=== PATIENT | female | born 1960 | race Caucasian/White ===

== ENCOUNTER 2016-11-05 10:20 | Inpatient (IN) | payer OTHER ==
[~2016-11-05 10:20] MED LIST: ABILIFY5 M1 PO; AMITRIPTYLINE H50 M1 PO; BRINTELLIX10 M1 PO; CEFDINIR300 M1 PO; CLARITIN10 M8 PO; IPRAT-ALBUT 0.5-3 ML INH; IPRAT-ALBUT 0.5-3 ML NEB; LEVAQUIN750 M1 PO; LIPITOR20 M1 PO; NASACORT10.8 M1; NORCO 7.5-3251 EACH PO; PREDNISONE10 M1 PO; PREDNISONE10 M2 PO; PREMPRO 0.625-1 EAC1 PO; PROMETHAZINE-C118 ML PO; PROVENTIL HFA6.7 G1 IH; SINGULAIR10 M1 PO; SYMBICORT 160-1 PUFF INH; VALSARTAN-HCTZ1 EA11 PO; ZITHROMAX250 M1 PO
[2016-11-05] MEDS ORDERED: VIBRAMYCIN100 M1 PO (10:51)
[2016-11-05] MEDS ORDERED: SPIRIVA RESPIMAT4 G1 INH (10:51)
[2016-11-05 12:14] LABS: BASO % 0.1 % (0-2); EOS % 0.5 % (0-7); EOSINOPHIL ABSOLUTE COUNT 0.1 tho/cmm (0.0-0.7); HCT-HEMATOCRIT 43.7 % (34.0-49.0); HGB-HEMOGLOBIN 14.8 gm/dl (12.0-15.5); IMMATURE GRANULOCYTES ABSOLUTE 0.19 tho/cmm (0-0.03); IMMATURE GRANULOCYTES PERCENT 0.8 % (0-0.3); LYMPH % 6.5 % (20-45); LYMPH ABSOLUTE COUNT 1.5 tho/cmm (0.8-4.5); MCH (MEAN CORPUSCULAR HGB) 29.8 pg (28.0-32.0); MCHC MEAN CORPUSCULAR HGB CONC 33.9 % (32.0-36.0); MCV (MEAN CELL VOLUME) 87.9 fl (82.0-96.0); MEAN PLATELET VOLUME 9.2 cmc (9.4-12.4); MONOCYTE ABSOLUTE COUNT 1.4 tho/cmm (0.0-1.2); NEUTROPHILS % 86.1 % (40-80); PLATELET COUNT 352 tho/cmm (150-450); RED BLOOD COUNT 4.97 mil/cmm (4.00-5.20); RED CELL DISTRIBUTION WIDTH 14.5 % (12.4-16.4); WHITE BLOOD COUNT 23.2 tho/cmm (4.0-10.0)
[2016-11-05 12:56] LABS: PROCALCITONIN <0.05 ng/ml (0.05-0.09)
[2016-11-05 13:13] LABS: ANION GAP 16 mmol/L (0-20); BLOOD UREA NITROGEN 24 mg/dl (6-24); CALCIUM 8.8 mg/dl (8.5-10.5); CARBON DIOXIDE-VENOUS 27 mmol/L (22-32); CHLORIDE 101 mmol/l (96-110); GLUCOSE 133 mg/dL (70-110); POTASSIUM 3.9 mmol/L (3.7-5.1); SODIUM 140 mmol/L (135-145); eGFR VALUE FOR BLACK >90 mL/Min
[2016-11-05 17:51] LABS: ALB/GLOB RATIO 0.9 (0.8-2.0); ALKALINE PHOSPHATASE 33 U/L (33-138); ALT/SGPT 24 U/L (12-78); ANION GAP 14 mmol/L (0-20); AST/SGOT 14 U/L (10-40); BILIRUBIN,TOTAL 0.4 mg/dl (0-1.5); BLOOD UREA NITROGEN 19 mg/dl (6-24); CALCIUM 7.5 mg/dl (8.5-10.5); CARBON DIOXIDE-VENOUS 24 mmol/L (22-32); CHLORIDE 106 mmol/l (96-110); CREATININE 0.77 mg/dl (0.50-1.10); GLUCOSE 166 mg/dL (70-110); POTASSIUM 3.8 mmol/L (3.7-5.1); SODIUM 140 mmol/L (135-145); eGFR VALUE FOR BLACK >90 mL/Min
[2016-11-06] MEDS ORDERED: AZITHROMYCIN500 M3 PO (10:50)
[2016-11-06] MEDS ORDERED: IBUPROFEN800 M1 PO (10:55)
[2016-11-06] MEDS ORDERED: MUCINEX600 M1 PO (10:58)
[2016-11-06] MEDS ORDERED: CEFDINIR300 M1 PO (11:00)
[2016-11-06] MEDS ORDERED: STOP HOME MEDICATION (11:48)
--- NOTE | 2016-11-06 12:50 | NUR ---
VIRTUAL CARE NOTE: PT DRESSING SITTING ON CHAIR, READY FOR DC TEACHING. INFORMATION GIVEN TO PT, DENIES QUESTIONS OR CONCERNS. INFORMED FLOOR NURSE DC TEACHING COMPLETED.
== END 2016-11-06 13:30 | DRG 195 ==
LOC: EDMED 10:20 → EMR2 14:48 → 5WD 17:06
PROVIDERS: Hospitalist; Physician Assistant; ADMIT Internal Medicine
DX: J18.1 Lobar pneumonia, unspecified organism (principal); I10 Essential (primary) hypertension; J45.909 Unspecified asthma, uncomplicated; E78.5 Hyperlipidemia, unspecified; F32.9 Major depressive disorder, single episode, unspecified; Z87.891 Personal history of nicotine dependence; Z88.2 Allergy status to sulfonamides; Z88.8 Allergy status to other drugs, medicaments and biological substances; Z91.041 Radiographic dye allergy status; Z79.51 Long term (current) use of inhaled steroids
CPT/HCPCS: G8978-GP-CI; G8979-GP-CI; G8980-GP-CI; J0456; J0696; J1650; J7030; J7050